=== PATIENT | female | born 1990 | race American Indian/Alaskan Native ===

== ENCOUNTER 2018-10-17 12:40 | Emergency (ER) | payer MEDICAID ==
[2018-10-17 12:40] VITALS: BMI 45.1
[2018-10-17] MEDS ORDERED: Sodium Chloride 0.9% 1,000 ML IV ONE (14:04)
[2018-10-17] MEDS ORDERED: Sodium Chloride 0.9% 1,000 ML ONE (14:12)
--- NOTE | 2018-10-17 14:22 | C.PDOC ---
History Of Present Illness 28 year old female presents to ED with complaint of intermittent upper abdominal pain for the past 2 weeks that has worsened. Patient states that she feels pain on both sides ,but more so to the right. Patient states that the pain radiates into her right shoulder and upper back area. Patient has been seen at [facility] 2 months ago for a similar discomfort and had an unremarkable CT scan. She was treated for a UTI and given pepcid and zofran. She denies taking any medication for pain. Patient reports increased appetite , but feels like she can't eat. Patient also complains of mild nausea and vomiting. She denies d iarrhea, vaginal bleeding, vaginal discharge, weight gain/loss, and fever. Time Seen by Provider: 10/17/18 13:57 Chief Complaint (Nursing): Abdominal Pain History Per: Patient History/Exam Limitations: no limitations Onset/Duration Of Symptoms: Other (2 weeks) Current Symptoms Are (Timing): Still Present Location Of Pain/Discomfort: RUQ, LUQ Radiation Of Pain To:: Back, Other (right shoulder) Quality Of Discomfort: "Pain" Associated Symptoms: Nausea, Vomiting. denies: Fever, Diarrhea, Other (vaginal discharge) Exacerbating Factors: None Alleviating Factors: None Abnormal Vaginal Bleeding: No Past Medical History Reviewed: Historical Data, Nursing Documentation, Vital Signs Vital Signs: Last Vital Signs Temp 98.6 F 10/17/18 12:50 Pulse 69 10/17/18 12:50 Resp 18 10/17/18 12:50 BP 113/75 10/17/18 12:50 Pulse Ox 99 10/17/18 12:50 - Medical History PMH: Anxiety Surgical History: No Surg Hx Family History: States: Unknown Family Hx - Social History Hx Alcohol Use: Yes Hx Substance Use: No - Immunization History Hx Tetanus Toxoid Vaccination: No Hx Influenza Vaccination: No Hx Pneumococcal Vaccination: No Review Of Systems Constitutional: Negative for: Fever, Chills, Weakness, Weight loss Gastrointestinal: Positive for: Nausea, Vomiting, Abdominal Pain (upper abdominal pain). Negative for: Diarrhea Genitourinary: Negative for: Vaginal Discharge, Vaginal Bleeding Musculoskeletal: Positive for: Shoulder Pain (right), Back Pain (upper back) Neurological: Negative for: Weakness, Dizziness Physical Exam - Physical Exam Appears: Non-toxic, No Acute Distress, Other (morbidly obese) Skin: Normal Color, Warm, Dry Head: Atraumatic, Normacephalic Neck: Normal ROM, Supple Chest: Symmetrical, No Deformity Cardiovascular: Rhythm Regular, No Murmur Respiratory: No Accessory Muscle Use, No Rales, No Rhonchi, No Wheezing Gastrointestinal/Abdominal: Bowel Sounds (normoactive), Soft, Tenderness (mild right upper quadrant tenderness), No Guarding, No Rebound Back: No CVA Tenderness Extremity: Capillary Refill (<2 seconds) Neurological/Psych: Oriented x3, Normal Speech, Normal Cognition ED Course And Treatment - Laboratory Results Result Diagrams: 10/17/18 14:34 10/17/18 14:34 Lab Interpretation: No Acute Changes O2 Sat by Pulse Oximetry: 99 (in RA) Pulse Ox Interpretation: Normal - CT Scan/US Abdominal ultrasound Other Rad Studies (CT/US): Read By Radiologist, Radiology Report Reviewed CT/US Interpretation: Accession No. : [id number]. Patient Name / ID : OLMAN HAGEN / [id number]. Exam Date : 10/17/2018 15:11:14 ( Approved ). Study Comment : Sex / Age : F / 28Y. Creator : Juvencio Kate MD. Dictator : Juvencio Kate MD. Spice Cleaner : Car Barn Laborer : Juvencio Kate MD. Approver2 : Report Date : 10/17/2018 16:08:49. My Comment : . Date of service: 10/17/2018. HISTORY: abd pain. COMPARISON: None. TECHNIQUE: Sonographic evaluation of the abdomen. FINDINGS: LIVER: Measures 18.5 cm. Diffusely increased echogenicity of the liver parenchyma. Consistent with fatty infiltration. S mooth contour. No mass. No biliary ductal dilatation. GALLBLADDER: Unremarkable. No gallstones. COMMON BILE DUCT: Measures 3 mm. No stones. No dilatation. PANCREAS: Unremarkable as visualized. No mass. No ductal dilatation. RIGHT KIDNEY: Measures 10.1cm. Normal echogenicity. No calculus, mass, or hydronephrosis. LEFT KIDNEY: Measures 10.4cm. Normal echogenicity. No calculus, mass, or hydronephrosis. SPLEEN: Normal in size and contour. No mass. AORTA: No aneurysmal dilatation. IVC: Unremarkable. OTHER FINDINGS: None. IMPRESSION: No evidence of cholelithiasis or cholecystitis. Mild hepatomegaly with fatty infiltration of the liver. Otherwise unremarkable. Reevaluation Time: 16:19 Reassessment Condition: Improved Medical Decision Making Medical Decision Making: Impression:28 year old female presents to ED with complaint of intermittent upper abdominal pain for the past 2 weeks that has worsened Plan: Labs ordered with CMP, CBC, and UA Abdominal US ordered for patient Patient given IV fluids Disposition Counseled Patient/Family Regarding: Studies Performed, Diagnosis, Need For Followup, Rx Given - Disposition Referrals: Vianey Rivera MD [Medical Doctor] - Disposition: HOME/ ROUTINE Disposition Time: 16:22 Condition: IMPROVED Prescriptions: Naproxen [Naprosyn] 1 tab PO BID PRN #25 tab PRN Reason: Pain Instructions: Stomach Ache and Stomach Upset Forms: [employer] (Yi) - Clinical Impression Clinical Impression: Abdominal pain - Scribe Statement The provider has reviewed the documentation as recorded by the Scribe (Kalani Gallardo) All medical record entries made by the Scribe were at my direction and personally dictated by me. I have reviewed the chart and agree that the record accurately reflects my personal performance of the history, physical exam, medical decision making, and the department course for this patient. I have also personally directed, reviewed, and agree with the discharge instructions and disposition.
[2018-10-17 14:42] LABS: BASO % 0.8 % (0.0-2.0); EOS # 0.1 K/uL (0.0-0.7); EOS % 1.2 % (0.0-4.0); HEMOGLOBIN 11.6 g/dL (11.0-16.0); LYMPH # 2.4 K/uL (1.0-4.3); LYMPH % 52.5 % (20.0-40.0); MEAN CORPUSCULAR HEMOGLOBIN 28.5 pg (27.0-31.0); MEAN CORPUSCULAR HGB CONC 33.2 g/dL (33.0-37.0); MEAN PLATELET VOLUME 7.2 fL (7.2-11.7); MONO # 0.4 K/uL (0.0-0.8); MONO % 7.7 % (0.0-10.0); NEUT # 1.7 K/uL (1.8-7.0); NEUT % 37.8 % (50.0-75.0); NRBC % 0.1 % (0.0-2.0); RBC 4.07 Mil/uL (3.80-5.20); RED CELL DISTRIBUTION WIDTH 13.1 % (11.5-14.5); WHITE BLOOD COUNT 4.6 K/uL (4.8-10.8)
[2018-10-17 14:46] LABS: SQUAMOUS EPITHIAL 1 /hpf (0-5); URINE BILIRUBIN NEGATIVE (NEGATIVE); URINE BLOOD NEGATIVE (NEGATIVE); URINE CLARITY Clear (Clear); URINE COLOR Yellow (YELLOW); URINE GLUCOSE (UA) NORMAL (Normal); URINE LEUKOCYTE ESTERASE NEG Leu/uL (Negative); URINE PROTEIN NEGATIVE (NEGATIVE); URINE UROBILINOGEN NORMAL mg/dL (0.2-1.0)
[2018-10-17 14:50] LABS: HCG,QUALITATIVE URINE NEGATIVE (NEGATIVE)
[2018-10-17 14:54] LABS: ALB/GLOB RATIO 1.3 (1.0-2.1); ALBUMIN 4.1 g/dL (3.5-5.0); ALT/SGPT 16 U/L (9-52); AST/SGOT 21 U/L (14-36); BLOOD UREA NITROGEN 14 mg/dL (7-17); CALCIUM 9.1 mg/dl (8.6-10.4); GFR NON-AFRICAN AMERICAN > 60; LIPASE 41 U/L (23-300)
--- NOTE | 2018-10-17 16:12 | US ---
Date of service: 10/17/2018 HISTORY: abd pain COMPARISON: None. TECHNIQUE: Sonographic evaluation of the abdomen. FINDINGS: LIVER: Measures 18.5 cm. Diffusely increased echogenicity of the liver parenchyma. Consistent with fatty infiltration. Smooth contour. No mass. No biliary ductal dilatation. GALLBLADDER: Unremarkable. No gallstones. COMMON BILE DUCT: Measures 3 mm. No stones. No dilatation. PANCREAS: Unremarkable as visualized. No mass. No ductal dilatation. RIGHT KIDNEY: Measures 10.1cm. Normal echogenicity. No calculus, mass, or hydronephrosis. LEFT KIDNEY: Measures 10.4cm. Normal echogenicity. No calculus, mass, or hydronephrosis. SPLEEN: Normal in size and contour. No mass. AORTA: No aneurysmal dilatation. IVC: Unremarkable. OTHER FINDINGS: None. IMPRESSION: No evidence of cholelithiasis or cholecystitis. Mild hepatomegaly with fatty infiltration of the liver. Otherwise unremarkable.
[2018-10-17 16:40] VITALS: BP 121/74; PULSE 74; RESP 20; TEMP 98.2; O2SAT 98
== END 2018-10-17 16:40 | disposition home or self-care (01) ==
LOC: C.ER 12:40
DX: R10.11 Right upper quadrant pain (principal)